=== PATIENT | male | born 1985 | race Caucasian/White ===

== ENCOUNTER → 2025-08-21 | Outpatient (CLI) | payer BC | LOC: M RAD 11:37 | PROVIDERS: ATTEND Nurse Practitioner Family | DX: M54.2 Cervicalgia (principal); M25.78 Osteophyte, vertebrae ==

== ENCOUNTER 2025-08-28 06:45 | Emergency (ER) | payer BC ==
[~2025-08-28] VITALS: Ht 165.1 cm; Wt 93.2 kg
[2025-08-28 07:46] LABS: BASO # 0.1 10^3/uL (0.0-0.2); BASO % 1.1 % (0.0-1.0); EOS # 0.2 10^3/uL (0.0-0.5); EOS % 3.4 % (0.0-3.0); LYMPH # 1.6 10^3/uL (1.5-5.0); LYMPH % 33.3 % (24.0-44.0); MONO # 0.4 10^3/uL (0.0-0.8); MONO % 8.5 % (2.0-8.0); NEUTROPHILS # 2.5 10^3/uL (1.5-8.5); NEUTROPHILS % 53.3 % (36.0-66.0); PLATELET COUNT, AUTOMATED 298 10^3/uL (150-450)
[2025-08-28 08:07] LABS: INR 0.91
[2025-08-28 08:08] LABS: ALT/SGPT 60 U/L (7.0-40); AST/SGOT 43 U/L (<34); CALCIUM LEVEL 9.3 MG/DL (8.5-10.1); CARBON DIOXIDE LEVEL 26 MMOL/L (20-31); CHLORIDE LEVEL 106 MMOL/L (98-107); CK-MB VALUE MASS < 1.0 NG/ML (<3.6); CREATININE FOR GFR 0.95 MG/DL (0.70-1.30); GLOMERULAR FILTRATION RATE > 90.0 (>60); POTASSIUM SERUM 4.3 MMOL/L (3.5-5.1); SODIUM LEVEL 142 MMOL/L (136-145)
[2025-08-28] MEDS: ALBUTEROL SULFATE 2.5 MG/0.5 ML INH CONCENTRATE NEB SOLN INH ONE (08:18)
[2025-08-28] MEDS: IPRATROPIUM 0.5 MG/ALBUTEROL 2.5 MG INH SOL UD 3 ML NEB ONE (08:18)
[2025-08-28 08:22] LABS: CPK CREATINE PHOSPHOKINASE 114 U/L (46-171)
[2025-08-28] MEDS ORDERED: ISOVUE-370 76% 100 ML VIAL As Ordered ONE (08:44)
[2025-08-28 09:10] LABS: CK-MB VALUE MASS < 1.0 NG/ML (<3.6)
[2025-08-28 09:11] LABS: CPK CREATINE PHOSPHOKINASE 107 U/L (46-171)
[2025-08-28] MEDS ORDERED: SUCR1TA PO (10:50)
[2025-08-28] MEDS ORDERED: OMEP40CA4 PO (10:50)
[2025-08-28 10:53] LABS: CK-MB VALUE MASS < 1.0 NG/ML (<3.6)
[2025-08-28 11:17] LABS: CPK CREATINE PHOSPHOKINASE 103 U/L (46-171)
[2025-08-28 11:30] VITALS: BP 123/85; TEMP 99; O2SAT 98
== END 2025-08-28 11:41 | disposition home or self-care (01) ==
LOC: M ED 06:45
DX: R07.89 Other chest pain (principal); R91.1 Solitary pulmonary nodule; I10 Essential (primary) hypertension
CPT/HCPCS: 71045; 71275; 80048; 80076; 82550; 82553; 83690; 83880; 84145; 84443; 84484; 85025; 85610; 85730; 87486; 87581; 87633; 87798; 93005; 93041; 94640; 94760; 99285; Q9967